=== PATIENT | male | born 2000 | race African-American/Black ===

== ENCOUNTER 2020-04-17 13:58 | Emergency (ER) | payer OTHER ==
[~2020-04-17] VITALS: Ht 175.3 cm; Wt 93.0 kg
[2020-04-17 13:59] VITALS: BP 122/74
[2020-04-17] MEDS ORDERED: LIDOCAINE 1% SDV 5ML VIAL DILUENT ONE (15:30)
[2020-04-17] MEDS ORDERED: cefTRIAXone SOD 250MG VIAL (J0696 PER 250MG) IM ONE (15:30)
[2020-04-17] MEDS ORDERED: AZITHROMYCIN 250MG TABLET PO ONE (15:30)
[2020-04-17 17:21] LABS: CHLAMYDIA DNA AMPLIFICATION NEGATIVE (NEGATIVE); GC DNA AMPLIFICATION POSITIVE (NEGATIVE)
== END 2020-04-17 15:51 | disposition home or self-care (01) ==
LOC: M ED 13:58
DX: N34.2 Other urethritis (principal); F17.200 Nicotine dependence, unspecified, uncomplicated
CPT/HCPCS: 81001; 87086; 87661; 99282; J0696